=== PATIENT | male | born 1970 | race African-American/Black ===

== ENCOUNTER 2020-06-15 13:58 | Inpatient (IN) ==
[2020-06-16] MEDS ORDERED: Naloxone 0.4 MG/ML INJ IVP PRN (00:23)
[2020-06-16] MEDS ORDERED: Perflutren Lipid Microsphere 1.3 ML in 0.9 % Sodium Chloride 8.7 ML IVP PRN (00:39)
[2020-06-16] MEDS ORDERED: Dextrose Gel 15 GM/37.5 ML TUBE PO PRN ×2 (00:41)
[2020-06-16] MEDS ORDERED: D5% in Water 1,000 ML IVC PRN (00:41)
[2020-06-16] MEDS ORDERED: *HR* Dextrose 50 % in Water (Vial) 50 ML VIAL IVP PRN (00:41)
[2020-06-16 00:58] LABS: Bilirubin,Urine Negative (Negative); Blood,Urine Negative (Negative); Clarity,Urine Clear (Clear); Color,Urine Yellow (Yellow); Glucose,Urine (UA) Normal (Normal); Ketones,Urine Negative (Negative); Leukocyte Esterase,Urine Negative (Negative); Nitrite,Urine Negative (Negative); PH,Urine 5.5 pH Units (5.0-8.0); Protein,Urine Trace mg/dL (Neg-Trace); Specific Gravity,Urine 1.015 (1.010-1.025); Urobilinogen,Urine Normal (Normal)
[2020-06-16 01:08] LABS: Sodium, Urine 55.1 mEq/L
[2020-06-16 03:00] LABS: Basophils % 0.2 %; Hemoglobin 8.7 g/dL (12.9-16.9); Mean Corpuscular Hemoglobin 23.1 pg (28.0-33.3); Mean Corpuscular Volume 80.6 fL (83.0-100.0); Mean Platelet Volume 9.8 fL (9.4-12.4); Red Cell Distribution Width 16.5 % (11.5-14.5)
[2020-06-16 03:11] LABS: Eosinophils # 0.1 K/mcL (0.0-0.6); Eosinophils % 2.9 %; Hematocrit 30.4 % (37.5-50.1); INR 1.4; Lymphocytes # 0.9 K/mcL (0.6-4.6); Lymphocytes % 19.1 %; Mean Corpuscular HGB Conc 28.6 g/dL (31.6-35.5); Monocytes # 0.6 K/mcL (0.0-1.3); Monocytes % 12.2 %; Platelet Count 271 K/mcL (140-400); Prothrombin Time 15.8 Seconds (9.4-12.1); Red Blood Count 3.77 M/mcL (4.19-5.50); Segmented Neutrophils % 65.6 %; White Blood Count 4.5 K/mcL (4.3-11.1)
[2020-06-16 03:14] LABS: Activated Partial Thrombo Time 31.7 Seconds (26.0-36.0)
[2020-06-16 03:20] LABS: Alanine Aminotransferase 175 Units/L (7-52); Albumin 3.5 g/dL (3.5-5.7); Albumin/Globulin Ratio 1.3 (1.1-2.2); Alkaline Phosphatase 394 Units/L (34-104); Aspartate Amino Transferase 113 Units/L (13-39); BUN/Creatinine Ratio 24 (6-26); Bilirubin,Total 0.4 mg/dL (0.3-1.0); Blood Urea Nitrogen 58 mg/dL (6-20); Calcium 8.3 mg/dL (8.6-10.3); Carbon Dioxide 29 mEq/L (23-29); Chloride 102 mEq/L (98-107); Globulin 2.8 g/dL (2.4-3.5); Glucose 88 mg/dL (70-105); Osmolality,Calculated 306 (280-300); Potassium 4.8 mEq/L (3.5-5.1); Sodium 140 mEq/L (136-145); Total Protein 6.3 g/dL (6.4-8.9); Troponin I < 0.03 ng/mL (< 0.04); eGFR For African Americans 34 (> 60); eGFR For Non-African Americans 28 (> 60)
[2020-06-16 03:47] LABS: Anisocytosis 1+ (Not Present); Hypochromasia Present (Not Present); Poikilocytosis 1+ (Not Present)
[2020-06-16 03:48] LABS: Platelet Estimate Normal (Normal)
[2020-06-16] MEDS: Insulin LISPRO 300 UNITS/3 ML VIAL SUBQ SCH ×3 (08:12→16:39)
[2020-06-16] MEDS: Albumin 25% 25gram/100mL 25 GM/100 ML IV.SOLN IVPB SCH ×2 (10:06→23:46)
[2020-06-16] MEDS ORDERED: Furosemide 40 MG/4 ML VIAL IVP ONE (10:30)
[2020-06-16] MEDS: hydrALAZINE 25 MG TABLET PO SCH (20:38)
[2020-06-16] MEDS: Budesonide/Formoterol 80/4.5 1 PUFF INH IH SCH (20:42)
[2020-06-17 04:25] LABS: Mean Platelet Volume 9.9 fL (9.4-12.4)
[2020-06-17 04:26] LABS: Hematocrit 30.3 % (37.5-50.1); Hemoglobin 8.5 g/dL (12.9-16.9); Mean Corpuscular HGB Conc 28.1 g/dL (31.6-35.5); Mean Corpuscular Hemoglobin 22.5 pg (28.0-33.3); Mean Corpuscular Volume 80.4 fL (83.0-100.0); Platelet Count 315 K/mcL (140-400); Red Blood Count 3.77 M/mcL (4.19-5.50); Red Cell Distribution Width 16.5 % (11.5-14.5); White Blood Count 7.2 K/mcL (4.3-11.1)
[2020-06-17 04:44] LABS: % Iron Saturation 9 % (20-55); Iron 29 mcg/dL (65-175); Transferrin 233 mg/dL (203-362)
[2020-06-17 04:45] LABS: Magnesium 2.3 mg/dL (1.6-2.6); Potassium 4.7 mEq/L (3.5-5.1)
[2020-06-17] MEDS: carvediloL 25 MG TABLET PO SCH ×3 (06:05→17:48)
[2020-06-17] MEDS: Budesonide/Formoterol 80/4.5 1 PUFF INH IH SCH ×2 (07:26→20:34)
[2020-06-17] MEDS: hydrALAZINE 25 MG TABLET PO SCH ×2 (08:03→19:49)
[2020-06-17] MEDS: Aspirin Enteric Coated 81 MG Tablet PO SCH (08:03)
[2020-06-17] MEDS: Insulin LISPRO 300 UNITS/3 ML VIAL SUBQ SCH ×3 (08:03→17:00)
[2020-06-17] MEDS: Albumin 25% 25gram/100mL 25 GM/100 ML IV.SOLN IVPB SCH ×2 (08:04→20:37)
[2020-06-17] MEDS ORDERED: Furosemide 40 MG/4 ML VIAL IVP ONE (09:38)
[2020-06-17] MEDS ORDERED: Ferumoxytol 510 MG in 0.9 % Sodium Chloride 100 ML IVPB ONE ×2 (14:23→19:45)
[2020-06-17 17:23] LABS: Creatinine,Urine 105 mg/dL; Microalbum/Creatinine Ratio,Ur 263 mcg/mg (Less than 30); Microalbumin,Urine 276 mg/L
[2020-06-17 18:21] LABS: Albumin 4.2 g/dL (3.5-5.7); Albumin/Globulin Ratio 1.4 (1.1-2.2); Bilirubin,Direct 0.2 mg/dL (0.0-0.2); Bilirubin,Indirect 0.6 mg/dL (0.0-1.0); Bilirubin,Total 0.8 mg/dL (0.3-1.0); Globulin 2.9 g/dL (2.4-3.5); Total Protein 7.1 g/dL (6.4-8.9)
[2020-06-18 05:34] LABS: Basophils % 0.2 %; Mean Platelet Volume 9.7 fL (9.4-12.4); Red Cell Distribution Width 16.7 % (11.5-14.5)
[2020-06-18 05:35] LABS: Eosinophils # 0.1 K/mcL (0.0-0.6); Eosinophils % 1.7 %; Hematocrit 30.2 % (37.5-50.1); Hemoglobin 8.4 g/dL (12.9-16.9); Immature Granulocytes % 0.2 % (0-4); Lymphocytes # 0.7 K/mcL (0.6-4.6); Lymphocytes % 11.9 %; Mean Corpuscular HGB Conc 27.8 g/dL (31.6-35.5); Mean Corpuscular Hemoglobin 22.8 pg (28.0-33.3); Mean Corpuscular Volume 81.8 fL (83.0-100.0); Monocytes # 0.7 K/mcL (0.0-1.3); Monocytes % 11.4 %; Neutrophils # 4.3 K/mcL (1.6-8.9); Platelet Count 289 K/mcL (140-400); Red Blood Count 3.69 M/mcL (4.19-5.50); Segmented Neutrophils % 74.6 %; White Blood Count 5.7 K/mcL (4.3-11.1)
[2020-06-18 05:39] LABS: Hypochromasia Present (Not Present); Platelet Estimate Normal (Normal)
[2020-06-18 05:55] LABS: Calcium 9.5 mg/dL (8.6-10.3); Potassium 4.6 mEq/L (3.5-5.1)
[2020-06-18] MEDS: Insulin LISPRO 300 UNITS/3 ML VIAL SUBQ SCH ×3 (09:48→18:17)
[2020-06-18] MEDS: carvediloL 25 MG TABLET PO SCH ×2 (09:57→18:16)
[2020-06-18] MEDS: Aspirin Enteric Coated 81 MG Tablet PO SCH (09:57)
[2020-06-18] MEDS: hydrALAZINE 25 MG TABLET PO SCH (09:57)
[2020-06-18] MEDS: Budesonide/Formoterol 80/4.5 1 PUFF INH IH SCH (10:08)
[2020-06-18] MEDS: Albumin 25% 25gram/100mL 25 GM/100 ML IV.SOLN IVPB SCH (10:41)
[2020-06-18 11:26] VITALS: BP 150/91
[2020-06-18] MEDS: Furosemide 40 MG TABLET PO SCH ×2 (12:21→18:16)
== END 2020-06-18 19:20 | disposition home or self-care (01) | DRG 682 ==
LOC: CDU → SUATTDRO 23:18
PROVIDERS: ADMIT Family Medicine; ATTEND Internal Medicine